=== PATIENT | female | born 1930 | race Caucasian/White ===

== ENCOUNTER 2019-04-07 16:11 | Inpatient (IN) | payer MEDICARE ==
[~2019-04-07] VITALS: Ht 149.9 cm; Wt 67.4 kg
[2019-04-07] MEDS ORDERED: DIPHENOXYLATE-1 EACH PO (17:56)
[2019-04-07] MEDS ORDERED: CLOPIDOGREL75 MG PO (17:56)
[2019-04-07] MEDS ORDERED: VITAMIN D32000 UNI1 PO (17:56)
[2019-04-07] MEDS ORDERED: CATAPRES-TTS 21 EACH TOP (17:56)
[2019-04-07] MEDS ORDERED: ISOSORBIDE MONO30 MG PO (17:57)
[2019-04-07] MEDS ORDERED: ALDACTONE25 MG PO (17:57)
[2019-04-07] MEDS ORDERED: COREG25 MG PO (17:57)
[2019-04-07] MEDS ORDERED: CARDURA2 MG PO (17:57)
[2019-04-07] MEDS ORDERED: FLUTICASONE-SA1 EAC5 INH (17:58)
[2019-04-07] MEDS ORDERED: FUROSEMIDE20 MG PO (17:58)
[2019-04-07] MEDS ORDERED: IPRATROPIU0.2 MG/1 M INH (17:59)
[2019-04-07] MEDS ORDERED: ASPIR 8181 MG PO (17:59)
[2019-04-07] MEDS ORDERED: VENTOLIN HFA18 GM INH (17:59)
[2019-04-07] MEDS ORDERED: ATIVAN0.5 MG PO (18:00)
[2019-04-07] MEDS ORDERED: CLOBETASOL PROP15 GM TOP (18:00)
--- NOTE | 2019-04-07 19:29 | EKG ---
[facility] [address] [place], [place] [address] Signed Normal sinus rhythm Normal ECG No previous ECGs available Confirmed by KARYNA HONG DO ([id number]) on 04/07/2019 7:29:09 PM Electronically Signed By: KARYNA HONG DO 04/07/19 1929 PATIENT NAME: SUZANNE TITUS Electrocardiogram DATE OF : [birth year] PHYSICIAN: KARYNA HONG DO REPORT #: [id number] REPORT IS CONFIDENTIAL AND NOT TO BE RELEASED WITHOUT AUTHORIZATION
--- NOTE | 2019-04-07 21:30 | NUR ---
PATIENT'S FAMILY DELIVERED CPAP MACHINE FROM PATIENT'S HOME TO USE. PATIENT CONTINUES TO REST QUIETLY IN BED. RT IN TO SET UP HOME MACHINE. FAMILY STAYING THE NIGHT, LINEN PROVIDED.
--- NOTE | 2019-04-07 22:30 | NUR ---
PATIENT ARRIVED VIA STRETCHER. PATIENT WAS FULL ASSIST TO TRANSFER OVER TO THE BED. PATIENT UNABLE TO STATE HER NAME OR ANSWER QUESTIONS. SHE DOES SAY A FEW WORDS OUT OF CONTEXT AND MAKES EYE CONTACT. PATIENT APPEARS CALM AND COMFORTABLE. SYSTOLIC BP <200. IV FLUIDS AND MAG INFUSING PER ORDER. DEWITT DRAINING FREELY, 38 MLS SINCE INSERTION IN ED. PATIENT'S LUNGS ARE CLEAR, DIMINISHED IN THE BASES. 2L NC IN PLACE. 2+ EDEMA NOTED IN [place] LOWER EXTREMITIES. PATIENT WARM TO THE TOUCH, 99.1 F ORAL TEMP. FAMILY AT BEDSIDE.
--- NOTE | 2019-04-07 23:22 | NUR ---
LAB CALLED WITH CRITICAL VALUE TROPONIN 0.044. DR. HONG NOTIFIED, NO NEW ORDERS REC'D
--- NOTE | 2019-04-08 01:00 | NUR ---
PATIENT RESTING IN BED. CPAP IN PLACE. PATIENT WAKES EASILY. ANSWERS YES OR NO QUESTIONS BUT UNABLE TO ANSWER ORIENTATION QUESTIONS. STATES "I'M JUST TIRED" AND CLOSES HER EYES. PATIENT'S LUNGS ARE CLEAR, DIM IN THE BASES. TOLERATING ROOM AIR WITH THE CPAP. ABD IS SOMEWHAT FIRM, PATIENT APPEARS UNCOMFORTABLE WITH PALPITATION BUT DENIES PAIN. BOWEL SOUNDS ARE ACTIVE. URINE OUTPUT INADEQUATE. VERIFIED THAT THE DEWITT WAS FREELY DRAINING. BLADDER SCAN SHOWS NO RESIDUAL IN THE BLADDER. VS STABLE. PATIENT AFEBRILE. SYSTOLIC BP <200. IV FLUIDS PER ORDER, SITE WNL.
--- NOTE | 2019-04-08 02:00 | NUR ---
REPORTED PATIENT'S LOW URINE OUTPUT TO DR. HONG. ORDERS RECEIVED FROM 1L [place] OF LR OVER 5 HOURS AND TROPONIN LAB ADDED FOR THE MORNING. BOLUS STARTED.
--- NOTE | 2019-04-08 04:14 | NUR ---
PATIENT WOKE EASILY TO VOICE. APPEARS MUCH MORE ALERT. ABLE TO CONVERSE EASILY AND ORIENTED X4. PATIENT ABLE TO REPORT HER REASON FOR ADMISSION, BUT IS UNSURE OF THE SEQUENCE OF EVENTS LEADING TO HER COMING TO THE HOSPITAL. PATIENT REQUEST WATER WHICH WAS PROVIDED TO HER. PATIENT ABLE TO SIT UP IN BED. LUNGS ARE CLEAR. PATIENT REPORTS HER LAST BM YESTERDAY. ABD CONTINUES TO BE FIRM AND PATIENT GRIMANCES WITH PALPITATION. DENIES PAIN BUT STATES "MAYBE, I'M NOT SURE". ASSISTED PATIENT TO REPOSITION IN BED. CPAP IN PLACE. URINE OUTPUT CONTINUES TO BE INADEQUATE. FLUID BOLUS INFUSING PER ORDER, SITE WNL.
--- NOTE | 2019-04-08 07:08 | NUR ---
PATIENT CONTINUES TO WAKE EASILY. ORIENTED X4. URINE OUTPUT CONTINUES TO BE POOR. PATIENT DENIES ANY NEEDS. BP SATISFACTORY. IV BOLUS HAS FINISHED. LR AT 100 ML/HR.
--- NOTE | 2019-04-08 07:30 | NUR ---
REPORT RECIEVED. PATIENT IS SITTING UP IN BED. TALKING WITH PATIENT ABOUT PLAN OF CARE FOR DAY, INDICATES UNDERSTANDING. SON AND [id number] IN ROOM.
--- NOTE | 2019-04-08 08:00 | NUR ---
ASSESSMENT DONE. HAS DISCOMFORT IN LOWER BACK AND WITH PALPATION TO LEFT LOWER ABD. DEWITT CATH PATIENT WITH SMALL AMOUNT OF URINE NOTED.
--- NOTE | 2019-04-08 08:20 | NUR ---
DR. HONG HERE TO SEE PATIENT. ORDERS RECIEVED.
--- NOTE | 2019-04-08 09:00 | NUR ---
ROUTINE MEDICATIONS AND LASIX 20 MG. BREAKFAST HELD PATIENT TO HAVE CT OF ABD/PELVIS.
--- NOTE | 2019-04-08 11:15 | NUR ---
TO CT VIA BED ACCOMP BY LINDA CALDWELL AND RN.
--- NOTE | 2019-04-08 11:30 | NUR ---
RETURN TO CCU, TOLERATED CT WELL. FAMILY MEMBERS ARE IN ROOM.
--- NOTE | 2019-04-08 11:53 | NUR ---
HAS HAD TOTAL OF 6 SMALL LIQUID STOOLS SINCE THIS AM.
--- NOTE | 2019-04-08 12:30 | NUR ---
ASSESSMENT UNCHANGED. TOOK LUNCH WELL. DENIES PAIN.
--- NOTE | 2019-04-08 13:30 | NUR ---
In for assessments in CCU. Pt has gone for exam, but son is in the room. States he and family recently moved pt to [place] from [facility] in the last month. 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 Family would like pt to return to [facility] on discharge with plan for comfort care.
--- NOTE | 2019-04-08 13:40 | NUR ---
DR. HONG HERE TO DISCUSS RESULTS OF CT AND POC WITH PATIENT AND PATIENT FAMILY.
--- NOTE | 2019-04-08 14:00 | NUR ---
Notified by Dr. Rowan pt would like to discuss Hospice after 3 pm today.
--- NOTE | 2019-04-08 14:30 | NUR ---
NAPPING, NO DISTRESS NOTED.
--- NOTE | 2019-04-08 14:38 | NUR ---
BRIAN MONTANO ASKED I NOT DISTURB PT AT THIS TIME. SHE HAS HAD A BUSY AM AND FEELS IT WOULD BE BEST FOR PT TO COME AT A LATER TIME.
--- NOTE | 2019-04-08 15:20 | NUR ---
In to speak with family, pt sleeping so we moved to the CCU waiting room. Discussed Hospice and plan to speak with [facility] tomorrow. If she is interested in Hospice I will contact [facility] to provide information when they are available. Family chose [facility] as they had friends who used their agency in the past.
--- NOTE | 2019-04-08 16:00 | NUR ---
AWAKE, UP TO COMMODE, CONTINUE TO HAVE LIQUID BROWN STOOLS. CREAM APPLIED TO BOTTOM. C/O DEWITT CATH PAIN. PATIENT ASKING FOR DEWITT TO BE DC'D. THIS DONE PER DR. GELY HENRY. ASSESSMENT DONE.
--- NOTE | 2019-04-08 17:59 | NUR ---
TOOK DINNER FAIR. UP TO CHAIR, TRANSFERRED TO MEDICAL FLOOR VIA CHAIR. NO DISTRESS NOTED.
[2019-04-08] MEDS ORDERED: CARDURA4 MG PO (18:23)
[2019-04-08] MEDS ORDERED: COMBIVENT RESPIM4 GM INH (18:25)
[2019-04-08] MEDS ORDERED: CATAPRES0.1 MG PO (18:28)
[2019-04-08] MEDS ORDERED: LASIX20 MG PO (18:29)
--- NOTE | 2019-04-08 18:30 | NUR ---
MED REC COMPLETE
--- NOTE | 2019-04-08 19:06 | NUR ---
REPORT TO NEXT SHIFT, FAMILY MEMBERS ARE IN ROOM. NO CHANGES.
--- NOTE | 2019-04-08 19:30 | NUR ---
SHIFT REPORT RECEIVED. PATIENT UP TO BSC WITH LETICIA TORRES. FAMILY LEAVING FOR THE NIGHT.
--- NOTE | 2019-04-08 20:48 | NUR ---
PATIENT UP TO BS. TRANSFERS WITH MINIMAL ASSIST. HAD A SMALL LIQUID BM. PATIENT REQUEST PRN FOR LOOSE STOOL WHICH WAS PROVIDED. SHE REPORTS REGULARLY TAKING 2 TABS, VERBAL ORDER FROM TO INCREASE PRN DOSE. PATIENT RETURNED TO BED. REPORTS SOME PAIN IN RIGHT FOOT, STATES THAT IT IS LIKELY A GOUT FLARE UP. PRN TYLENOL PROVIDED. PATIETN ON HOME CPAP. CALL LIGHT IN REACH. NO FURTHER NEEDS AT THIS TIME.
--- NOTE | 2019-04-09 | NUR ---
PATIENT CONTINUES TO BE SLEEPING SOUNDLY. CPAP IN PLACE. CALL LIGHT IN REACH.
--- NOTE | 2019-04-09 04:00 | NUR ---
PATIENT CALLED FOR ASSISTANCE UP TO BSC. PATIENT TRANSFERS WITH MINIMAL ASSISTANCE. BECOMES SOB UPON RETURNING TO BED. CPAP IN PLACE. HOB ELEAVTED. PATIENT ABLE TO REST AFTER A FEW MINS. DENIES FURTHER NEEDS. CALL LIGHT IN REACH.
--- NOTE | 2019-04-09 08:00 | NUR ---
ASSESSMENT DONE. TALKED WITH PATIENT ABOUT PLAN OF CARE FOR DAY, INDICATES UNDERSTANDING. POSSIBLE DISCHARGE TODAY.
--- NOTE | 2019-04-09 08:00 | NUR ---
In at families request to speak with pt about Hospice. Pt. denies need for explanation and states she would like hospice. Informed I can call Hospice for them to visit and give information on their program. Discussed with pt and family I am not sure if she qualifies as she would need a terminal diagnosis. Family stated they would prefer [facility] due to past experience and I will call them and ask if they can see pt at [facility]. Called and spoke with [facility] and they will see pt tomorrow in [place]. They will call the pt's son.
--- NOTE | 2019-04-09 08:10 | NUR ---
SCENARIO WRITER HERE TO TALK WITH PATIENT ABOUT HOSPICE CARE. FAMILY MEMBERS ARE IN ROOM.
--- NOTE | 2019-04-09 09:15 | NUR ---
ROUTINE MEDICATIONS GIVEN.
--- NOTE | 2019-04-09 09:36 | NUR ---
VISITING WITH FAMILY MEMBERS. DENIES PROBLEMS.
[2019-04-09] MEDS ORDERED: MORPHINE S10 MG/5 ML PO (10:30)
--- NOTE | 2019-04-09 10:40 | NUR ---
DISCHARGE ORDERS RECIEVED.
--- NOTE | 2019-04-09 11:10 | NUR ---
DISCHARGE INSTRUCTIONS GIVEN WITH PATIENT UNDERSTANDING.
--- NOTE | 2019-04-09 11:25 | NUR ---
DISCHARGED VIA W/C ACCOMP BY
--- NOTE | 2019-04-09 14:11 | NUR ---
PT DC'D TO [facility]
== END 2019-04-09 11:25 | disposition hospice, home (50) | DRG 280 ==
LOC: ED 16:11 → CCU 16:14
PROVIDERS: ADMIT Student in an Organized Health Care Education/Training Program
DX: I16.1 Hypertensive emergency (principal); G93.41 Metabolic encephalopathy; I21.A1 Myocardial infarction type 2; J18.9 Pneumonia, unspecified organism; N17.9 Acute kidney failure, unspecified; J96.11 Chronic respiratory failure with hypoxia; I12.9 Hypertensive chronic kidney disease with stage 1 through stage 4 chronic kidney disease, or unspecified chronic kidney disease; N18.9 Chronic kidney disease, unspecified; J44.9 Chronic obstructive pulmonary disease, unspecified; I25.10 Atherosclerotic heart disease of native coronary artery without angina pectoris; F03.90 Unspecified dementia, unspecified severity, without behavioral disturbance, psychotic disturbance, mood disturbance, and anxiety; Z51.5 Encounter for palliative care; Z66 Do not resuscitate; Z99.81 Dependence on supplemental oxygen; Z88.1 Allergy status to other antibiotic agents; Z88.0 Allergy status to penicillin; Z88.2 Allergy status to sulfonamides; Z88.8 Allergy status to other drugs, medicaments and biological substances; Z79.02 Long term (current) use of antithrombotics/antiplatelets; Z79.82 Long term (current) use of aspirin; Z79.51 Long term (current) use of inhaled steroids; Z79.899 Other long term (current) drug therapy
CPT/HCPCS: 36415; 51702; 70450; 71045; 71250; 74176; 80048; 80053; 81001; 82570; 82607; 83605; 83735; 83880; 84100; 84300; 84443; 84481; 84484; 84540; 85025; 85379; 85610; 87040; 93005; 93010; 94640; 99285-25; J0696; J1650; J1940; J3475; J7030; J7121